=== PATIENT | female | born 1975 | race African-American/Black ===

== ENCOUNTER 2019-07-29 18:59 | Inpatient (IN) | payer MEDICARE, MEDICAID ==
[~2019-07-29] VITALS: Ht 170.2 cm; Wt 79.8 kg
[2019-07-29] MEDS ORDERED: HYDRALAZINE HCL10 MG ORAL (19:07)
[2019-07-29] MEDS ORDERED: PROTONIX40 MG ORAL (19:07)
[2019-07-29] MEDS ORDERED: PROCARDIA10 MG ORAL (19:07)
[2019-07-29] MEDS ORDERED: LISINOPRIL5 MG ORAL (19:07)
[2019-07-29] MEDS ORDERED: FUROSEMIDE40 MG ORAL (19:07)
[2019-07-29] MEDS ORDERED: DILANTIN100 MG ORAL (19:07)
[2019-07-29] MEDS ORDERED: AMLODIPINE BES2.5 MG ORAL (19:07)
[2019-07-29] MEDS ORDERED: KEPPRA500 M4 ORAL (19:07)
[2019-07-29 19:30] VITALS: BP 101/60
[2019-07-29 19:36] LABS: BASOPHILS % (AUTO) 2.8 % (0.0-2.0); EOSINOPHILS % (AUTO) 4.7 % (0.0-3.0); HEMATOCRIT 35.2 % (37.0-47.0); HEMOGLOBIN 10.4 G/DL (12.0-16.0); LYMPHOCYTES % (AUTO) 36.7 % (20.0-45.0); MEAN CORPUSCULAR VOLUME 99 FL (80-99); MONOCYTES % (AUTO) 8.5 % (1.0-10.0); NEUTROPHILS % (AUTO) 47.3 % (45.0-75.0); PLATELET COUNT 217 K/UL (150-450); RED BLOOD COUNT 3.56 M/UL (4.20-5.40); RED CELL DISTRIBUTION WIDTH 17.8 % (11.6-14.8); WHITE BLOOD COUNT 4.7 K/UL (4.8-10.8)
--- NOTE | 2019-07-29 19:43 | Diagnostic Imaging Report ---
EXAM: XR Chest, 1 View CLINICAL HISTORY: WEAK TECHNIQUE: Frontal view of the chest. COMPARISON: No relevant prior studies available. FINDINGS: Lungs: Unremarkable. No consolidation. Pleural space: Unremarkable. No pneumothorax. Heart: Unremarkable. No cardiomegaly. Mediastinum: Unremarkable. Bones/joints: Unremarkable. IMPRESSION: 1. No acute cardiopulmonary disease. 2. If there is continued concern recommend frontal and lateral chest radiographs or CT.
[2019-07-29 21:27] LABS: ALANINE AMINOTRANSFERASE 16 U/L (12-78); ALBUMIN 2.1 G/DL (3.4-5.0); ALBUMIN/GLOBULIN RATIO 0.5 (1.0-2.7); ALKALINE PHOSPHATASE 281 U/L (46-116); ANION GAP 8 mmol/L (5-15); ASPARTATE AMINO TRANSFERASE 25 U/L (15-37); BILIRUBIN,TOTAL 0.3 MG/DL (0.2-1.0); BLOOD UREA NITROGEN 13 mg/dL (7-18); CALCIUM 7.8 MG/DL (8.5-10.1); CARBON DIOXIDE 30 MMOL/L (21-32); CHLORIDE 104 MMOL/L (98-107); CREATININE 4.1 MG/DL (0.55-1.30); SODIUM 141 MMOL/L (136-145)
[2019-07-29 21:33] LABS: POTASSIUM 2.3 MMOL/L (3.5-5.1)
--- NOTE | 2019-07-29 22:39 | Emergency Room Report ---
History of Present Illness General Chief Complaint: Generalized Weakness Source: Patient Present Illness HPI 44-year-old female presents for weakness. Coming from home. Started today. Per EMS blood pressure in the 80s. History of end-stage renal disease on dialysis. Denies fevers or chills. Denies chest pain. Accu-Chek in the 70s. Given D10. No other aggravating relieving factors. Denies any other associated symptoms Allergies: Uncoded Allergies: VICODEN (Allergy, Unknown, 07/29/19) COVID-19 Screening Contact w/high risk pt: No Recent Travel to affected area: No Experienced COVID-19 symptoms?: No COVID-19 Testing performed DIRECTOR FUNERAL: No Patient History Past Medical History: DM, HTN, renal disease, dialysis Past Surgical History: none Pertinent Family History: none Social History: Denies: smoking, alcohol use, drug use Now: No Immunizations: UTD Reviewed Nursing Documentation: PMH: Agreed; PSxH: Agreed Nursing Documentation-PMH Past Medical History: No History, Except For Hx Hypertension: Yes Hx Diabetes: Yes Hx Seizures: Yes Review of Systems All Other Systems: negative except mentioned in HPI Physical Exam Vital Signs Date Time Temp Pulse Resp B/P (MAP) Pulse Ox O2 Delivery O2 Flow Rate FiO2 07/29/19 18:56 97.0 64 17 99/61 (74) 99 Room Air Sp02 EP Interpretation: reviewed, normal General Appearance: no apparent distress, alert, GCS 15, non-toxic Head: normocephalic, atraumatic Eyes: bilateral eye normal inspection, bilateral eye PERRL ENT: hearing grossly normal, normal pharynx, no angioedema, normal voice Neck: full range of motion, supple/symm/no masses Respiratory: chest non-tender, lungs clear, normal breath sounds, speaking full sentences Cardiovascular #1: regular rate, rhythm, no edema Cardiovascular #2: 2+ carotid (R), 2+ carotid (L), 2+ radial (R), 2+ radial (L) , 2+ dorsalis pedis (R), 2+ dorsalis pedis (L) Gastrointestinal: normal bowel sounds, non tender, soft, non-distended, no guarding, no rebound Rectal: deferred Genitourinary: normal inspection, no CVA tenderness Musculoskeletal: back normal, normal range of motion, gait/station normal, non- tender Neurologic: alert, motor strength/tone normal, oriented x3, sensory intact, responsive, speech normal Psychiatric: judgement/insight normal, memory normal, mood/affect normal, no suicidal/homicidal ideation Reflexes: 3+ bicep (R), 3+ bicep (L), 3+ tricep (R), 3+ tricep (L), 3+ knee (R) , 3+ knee (L) Lymphatic: no adenopathy Procedures Critical Care Time Critical Care Time i. I feel this is a highly complex case requiring extensive working including EKG/Rhythm strip, Xray/CT/US, Blood/urine lab work, repeat exams while in ED, and administration of strong opiates/narcotics for pain control, admission to hospital or close patient follow up. Total time: 30 min bedside evaluation and treatment excludes procedures (EKG). Reason for critical care: hypotension, hypokalemia Possible complications: hypotension, hypertension, TN, shock, arrhythmias, metabolic acidosis, end organ damage, respiratory failure. Interventions: Labs, EKG, chest x-ray, IV fluids, potassium Course: Patient presenting for weakness. Hypotensive. End-stage renal disease. Given small fluid bolus. BP improved. Potassium 2.3. No acute changes on EKG. Potassium repleted. Consultations: nursing staff, EMS, family Performed by: Dr Vega Tolerated well condition = serious j. because of unstable vital signs this patient had a condition that could potentially threaten life or limb. I feel this is a critical patient who required my full attention while patient was considered critical. Total Critical Care Time excluding procedures was greater than 35 minutes Medical Decision Making Diagnostic Impression: Primary Impression: Episode of generalized weakness Additional Impressions: Hypotension Qualified Codes: I95.9 - Hypotension, unspecified Hypokalemia ESRD (end stage renal disease) on dialysis ER Course Hospital Course 44 yo F presents for weakness, hypotensive. ESRD Differential diagnoses include: TN/unstable angina, V. tach, bradycardia, hyperkalemia, fluid overload Clinical course Patient placed on stretcher. on manager golf. After initial history and physical I ordered labs, EKG, CXr, IVFS labs reviewed- BUN/Cr elevated, K 2.3, no leukocytosis, Hemoglobin/hematocrit normal. EKG - NSR, no acute ischemci changes interpreted by me CXR - no acute process BP improved after fluid bolus. Potassium repleted. Admitted to Dr. Lucas service I. I feel this is a highly complex case requiring extensive working including EKG/Rhythm strip, Xray/CT/US, Blood/urine lab work, repeat exams while in ED, and administration of strong opiates/narcotics for pain control, admission to hospital or close patient follow up. Diagnosis -episode of generalized weakness, hypotension, hypokalemia, end-stage renal disease on dialysis admited to telemetry in serious condition Labs Test 07/29/19 19:29 07/29/19 20:50 White Blood Count 4.7 K/UL (4.8-10.8) Red Blood Count 3.56 M/UL (4.20-5.40) Hemoglobin 10.4 G/DL (12.0-16.0) Hematocrit 35.2 % (37.0-47.0) Mean Corpuscular Volume 99 FL (80-99) Mean Corpuscular Hemoglobin 29.3 PG (27.0-31.0) Mean Corpuscular Hemoglobin Concent 29.7 G/DL (32.0-36.0) Red Cell Distribution Width 17.8 % (11.6-14.8) Platelet Count 217 K/UL (150-450) Mean Platelet Volume 7.0 FL (6.5-10.1) Neutrophils (%) (Auto) 47.3 % (45.0-75.0) Lymphocytes (%) (Auto) 36.7 % (20.0-45.0) Monocytes (%) (Auto) 8.5 % (1.0-10.0) Eosinophils (%) (Auto) 4.7 % (0.0-3.0) Basophils (%) (Auto) 2.8 % (0.0-2.0) Sodium Level 141 MMOL/L (136-145) Potassium Level 2.3 MMOL/L (3.5-5.1) Chloride Level 104 MMOL/L (98-107) Carbon Dioxide Level 30 MMOL/L (21-32) Anion Gap 8 mmol/L (5-15) Blood Urea Nitrogen 13 mg/dL (7-18) Creatinine 4.1 MG/DL (0.55-1.30) Estimat Glomerular Filtration Rate 11.9 mL/min (>60) Glucose Level 128 MG/DL (74-106) Calcium Level 7.8 MG/DL (8.5-10.1) Total Bilirubin 0.3 MG/DL (0.2-1.0) Aspartate Amino Transf (AST/SGOT) 25 U/L (15-37) Alanine Aminotransferase (ALT/SGPT) 16 U/L (12-78) Alkaline Phosphatase 281 U/L (46-116) Troponin I 0.037 ng/mL (0.000-0.056) Pro-B-Type Natriuretic Peptide > 41553 pg/mL (0-125) Total Protein 6.6 G/DL (6.4-8.2) Albumin 2.1 G/DL (3.4-5.0) Globulin 4.5 g/dL Albumin/Globulin Ratio 0.5 (1.0-2.7) EKG Diagnostic Results Rate: normal Rhythm: NSR ST Segments: no acute changes ASA given to the pt in ED: No Rhythm Strip Diag. Results EP Interpretation: yes Rhythm: NSR, no PVC's, no ectopy Chest X-Ray Diagnostic Results Chest X-Ray Diagnostic Results : Chest X-Ray Ordered: Yes # of Views/Limited/Complete: 1 View Indication: Other EP Interpretation: Yes Interpretation: no consolidation, no effusion, no pneumothorax, no acute cardiopulmonary disease Impression: No acute disease Electronically Signed by: Electronically signed by Sami Vega MD Last Vital Signs Date Time Temp Pulse Resp B/P (MAP) Pulse Ox O2 Delivery O2 Flow Rate FiO2 07/29/19 19:30 75 17 Room Air 07/29/19 19:30 97.0 101/60 100 Status: improved Disposition: ADMITTED INPATIENT Condition: Serious Referrals: NON PHYSICIAN (PCP) Sami Vega MD July 29, 2019 22:39
[2019-07-29 23:30] VITALS: BP 114/64
[2019-07-30] MEDS ORDERED: Acetaminophen 500mg (ES) tab ORAL PRN
[2019-07-30 04:00] VITALS: BP 147/88
[2019-07-30 07:28] LABS: BASOPHILS % (AUTO) 0.8 % (0.0-2.0); EOSINOPHILS % (AUTO) 5.6 % (0.0-3.0); HEMATOCRIT 32.5 % (37.0-47.0); HEMOGLOBIN 10.5 G/DL (12.0-16.0); LYMPHOCYTES % (AUTO) 32.5 % (20.0-45.0); MEAN CORPUSCULAR VOLUME 91 FL (80-99); NEUTROPHILS % (AUTO) 53.1 % (45.0-75.0); PLATELET COUNT 198 K/UL (150-450); RED BLOOD COUNT 3.56 M/UL (4.20-5.40); RED CELL DISTRIBUTION WIDTH 15.6 % (11.6-14.8); WHITE BLOOD COUNT 5.1 K/UL (4.8-10.8)
[2019-07-30 07:39] LABS: ALANINE AMINOTRANSFERASE 17 U/L (12-78); ALBUMIN 2.4 G/DL (3.4-5.0); ALBUMIN/GLOBULIN RATIO 0.5 (1.0-2.7); ALKALINE PHOSPHATASE 300 U/L (46-116); ANION GAP 10 mmol/L (5-15); ASPARTATE AMINO TRANSFERASE 32 U/L (15-37); BILIRUBIN,TOTAL 0.2 MG/DL (0.2-1.0); BLOOD UREA NITROGEN 14 mg/dL (7-18); CALCIUM 8.6 MG/DL (8.5-10.1); CARBON DIOXIDE 28 MMOL/L (21-32); CHLORIDE 101 MMOL/L (98-107); CREATININE 4.6 MG/DL (0.55-1.30); POTASSIUM 2.8 MMOL/L (3.5-5.1); SODIUM 139 MMOL/L (136-145)
[2019-07-30 08:00] VITALS: BP 167/75
--- NOTE | 2019-07-30 08:19 | Consultation ---
Consult Note Consult Note I am asked to evaluate the patient at the request of Dr. Lucas for dialysis management. This is patient's first hospitalization here at [facility]. Patient is 44 years old who refers to emergency room for weakness. According to EMS the patient had low blood pressure of 80 systolic. Past history significant for end-stage renal disease patient is on dialysis Tuesday. Patient was given a D10 at the field for low blood sugar prior to transfer to the ER. Allergies to Vicodin. COVID-19 screening done in the emergency room is negative. Past history diabetes mellitus, hypertension, renal disease on hemodialysis, history of seizure disorder. Medications reviewed which includes Dilantin and Keppra for seizures also blood pressure medications. On examination the patient is afebrile heart rate is 70 respiratory rate is 17 blood pressure at that was low on presentation to the ER is now within normal limits of 140/82 pulse ox is 99% on room air Patient is alert and oriented, very inquisitive regarding her condition Head is normocephalic sclera is not icteric Lungs no wheezes no rhonchi decreased breath sound over the bases Heart is regular with occasional irregular beats Abdomen is soft Lower extremities no edema patient moves all extremities . Assessment/Plan This 44-year-old female presents with weakness and low blood sugar. Has end-stage renal disease on hemodialysis Tuesday. Has been on dialysis for the past 4 years. Has left upper arm dialysis access. Hypertensive kidney disease. Diabetic nephropathy. Seizure disorder. Hypotension and hypokalemia on presentation to ER. Plan: We will arrange for dialysis tomorrow. More potassium supplements today, p.o. Renal diet, 2D echocardiogram Keep the blood sugar and blood pressure in check Home medication reviewed Patient's numerous questions answered and her condition discussed Per orders. Don Dick MD Jul 30, 2019 08:19
[2019-07-30] MEDS ORDERED: HydrALAZINE 25mg tab ORAL PRN (08:30)
[2019-07-30 08:35] LABS: CHOLESTEROL 144 MG/DL (< 200); HDL CHOLESTEROL 95 MG/DL (40-60); PHOSPHORUS 3.4 MG/DL (2.5-4.9); TRIGLYCERIDES 27 MG/DL (30-150)
[2019-07-30] MEDS: Phenytoin 100mg cap ORAL SCH ×2 (08:54→13:41)
[2019-07-30] MEDS ORDERED: Lisinopril 2.5mg tab ORAL SCH ×2 (09:00→18:00)
[2019-07-30 11:54] VITALS: BP 180/99
[2019-07-30 16:00] VITALS: BP 172/87
[2019-07-30 18:00] VITALS: BP 161/81
[2019-07-30] MEDS ORDERED: Lisinopril 10mg tab ORAL SCH (18:00)
[2019-07-30 18:37] VITALS: BP 161/81
[2019-07-30] MEDS ORDERED: Phenytoin 100mg cap ORAL SCH (21:00)
--- NOTE | 2019-07-30 22:30 | History and Physical Report ---
DATE OF ADMISSION: 07/29/2019 HISTORY OF PRESENT ILLNESS: The patient is being admitted for hypertension, end-stage renal disease. The patient came in with weakness, hypertension, end-stage renal disease on hemodialysis, and severe hypokalemia. Admitted for those reasons. The patient's main complaint was weakness. Denies fever or chills. Denies respiratory problems. Denies shortness of breath. Denies cough. PAST MEDICAL HISTORY: Significant for NIDDM, end-stage renal disease on hemodialysis, hypertension, history of seizures, GERD. PAST SURGICAL HISTORY: Related to dialysis. MEDICATIONS: Lisinopril, Keppra, hydralazine, Lasix, amlodipine, Protonix, Dilantin. SOCIAL HISTORY: Denies history of smoking. Denies history of alcohol abuse. No history of drug abuse. FAMILY HISTORY: Noncontributory. REVIEW OF SYSTEMS: HEENT: Denies headaches. RESPIRATORY: Denies shortness of breath. Denies cough. CARDIOVASCULAR: Denies chest pain. Denies orthopnea. GASTROINTESTINAL: Denies nausea, vomiting, or diarrhea. EXTREMITIES: Denies any significant pain. CENTRAL NERVOUS SYSTEM: Denies change in speech pattern. Feels weak. PHYSICAL EXAMINATION: VITAL SIGNS: Temperature is 98.3, pulse 84, blood pressure 172/87. HEENT: PERRLA. CHEST: Clear to auscultation. CARDIOVASCULAR: Regular rate and rhythm. No murmurs or extra sounds. GASTROINTESTINAL: Soft, nontender, nondistended. No organomegaly. EXTREMITIES: A 1+ edema. Moves all extremities. LABORATORY DATA: Significant for WBC of 4.7, hemoglobin 10.4, and platelets of 217. Sodium 141, potassium of 2.3, BUN of 13, creatinine 4.1, glucose of 128. Alkaline phosphatase of 281. ASSESSMENT AND PLAN: 1. Hypokalemia. 2. Hypertension. 3. End-stage renal disease on hemodialysis. I have asked Dr. Dick, Dr. Gregoyr Causey to see the patient to rule out any infectious etiology as well, dialysis orders and hypokalemia replacement per Dr. Dick. We will Dr. Dick's expertise. Antibiotics as per Dr. Gregory Causey. Pricila Lucas M.D. DR: Traci JOB#: [id number] CC:
--- NOTE | 2019-07-31 10:41 | Discharge Summary ---
Discharge Summary Discharge Summary _ DATE OF ADMISSION: 07/29/2019 DATE OF DISCHARGE: 07/30/2019 Patient left AGAINST MEDICAL ADVICE REASON FOR ADMISSION: 44 years old female with past medical history of hypertension, diabetes mellitus , end-stage renal disease, on hemodialysis, seizure disorder, presented for generalized weakness. Per paramedics, systolic blood pressure was in 80s. Patient denied fever and chills. Patient denied chest pain. Blood sugar was in 70s. Patient received D10. Upon evaluation in ED blood pressure 99/61 . Patient had no fever. Laboratory work-up revealed no leukocytosis, hemoglobin 10.4, hematocrit 35.2, platelet count 217. Potassium 2.3. BUN 13, creatinine 4.1. Glucose 128. Stable LFT. Troponin 0.037. pro BNP >35,000. EKG revealed sinus rhythm no acute ischemic changes. Albumin 2.1. Chest x-ray revealed no acute cardiopulmonary pathology. Patient subsequently admitted to telemetry floor for further management CONSULTANTS: scheduling administrator Dr. Dick [facility] COURSE: Patient admitted to telemetry floor. Drum Plater seen and evaluated patient. Hemodialysis was arranged for the next day. Potassium was replaced. Patient started on renal diet. Echocardiogram was ordered. Hemodynamic status was closely monitored. Patient received 1 L of fluid in emergency department after which blood pressure improved. Blood pressure later was managed with FITO inhibitor ; hydralazine was on board as needed for blood pressure spikes. GI prophylaxis provided. Seizure precaution maintained. Patient continued on Dilantin and Keppra. No evidence of seizure activity while in the hospital. Dilantin level was subtherapeutic. Patient was encouraged to comply with medication regimen. Patient remained in sinus rhythm on telemetry. Blood sugar remained stable, although hemoglobin A1c 11.6 , clearly not at goal. Patient was encouraged to comply with anti-glycemic regimen at home. Lipid panel was stable. TSH within normal limits. On 07/29 patient decided to leave AGAINST MEDICAL ADVICE. The risks and consequences of signing AGAINST MEDICAL ADVICE were discussed with patient in detail. Patient verbalized understanding, nevertheless signed AMA form and left. FINAL DIAGNOSES: Generalized weakness with hypotension Hypokalemia Hypertensive kidney disease End-stage renal disease, on hemodialysis. Diabetic nephropathy Seizure disorder I have been assigned to dictate discharge summary for this account. I was not involved in the patient's management. Meghana Verma NP Jul 31, 2019 10:41
== END 2019-07-30 22:10 | disposition left against medical advice (07) | DRG 640 ==
LOC: EDBD 18:59 → EMR 19:40 → 2E 21:08 → EDBEDREQ 21:41
DX: E87.6 Hypokalemia (principal); N18.6 End stage renal disease; I12.0 Hypertensive chronic kidney disease with stage 5 chronic kidney disease or end stage renal disease; I95.9 Hypotension, unspecified; K21.9 Gastro-esophageal reflux disease without esophagitis; E11.22 Type 2 diabetes mellitus with diabetic chronic kidney disease; N18.9 Chronic kidney disease, unspecified; Z99.2 Dependence on renal dialysis; G40.909 Epilepsy, unspecified, not intractable, without status epilepticus
CPT/HCPCS: 36415; 71045; 80053; 80061; 80185; 83036; 83735; 83880; 84100; 84443; 84484; 85025; 86706; 87040; 87081; 93005; 93306; 96360; 99291; J7030; J8499